=== PATIENT | male | born 1965 | race African-American/Black ===

== ENCOUNTER 2022-04-14 22:17 | Emergency (ER) | payer OTHER ==
[~2022-04-14] VITALS: Ht 188 cm; Wt 112.0 kg
[2022-04-14] MEDS ORDERED: MORPHINE SULFATE 4 MG/ML SYR/VIAL IV ONE (23:30)
[2022-04-14] MEDS ORDERED: ONDANSETRON HCL 4 MG/2 ML VIAL IV ONE (23:30)
[2022-04-14 23:43] LABS: Basophils # (auto) 0 10 ^3/uL (0-0.2); Basophils % (auto) 0.3 % (0.0-2.0); Eosinophils # (auto) 0 10 ^3/uL (0-0.8); Eosinophils % (auto) 0.2 % (0.0-7.0); Hematocrit 44.9 % (41.0-53.0); Hemoglobin 15.6 g/dL (13.5-17.5); Lymphocytes # (auto) 0.8 10 ^3/uL (0.4-5.4); Lymphocytes % (auto) 6.3 % (10.0-50.0); Mean Corpuscular Hemoglobin 31.5 pg (28.0-32.0); Mean Corpuscular Hgb Conc. 34.8 g/dL (32.0-36.0); Mean Corpuscular Volume 90.6 fL (80.0-100.0); Monocytes # (auto) 0.5 10 ^3/uL (0-1.3); Monocytes % (auto) 3.9 % (0.0-12.0); Neutrophils # (auto) 11.7 10 ^3/uL (1.6-8.6); Neutrophils % (auto) 89.3 % (37.0-80.0); Nucleated Red Blood Cells % 0.4 %; Red Blood Cells 4.95 10^6/uL (4.5-5.90); Red Cell Distribution Width 13.8 % (11.8-14.3); White Blood Cell 13.1 10^3/uL (4.4-10.8)
[2022-04-14] MEDS ORDERED: levETIRAcetam 500 MG/5ML INJ IV ONE (23:43)
[2022-04-15] LABS: INR 1.1 (0.9-1.15); Partial Thromboplastin Time 28.2 sec (24.6-33.4)
[2022-04-15 00:13] LABS: Albumin 4.1 g/dL (3.4-5.0); BUN/Creatinine Ratio 13.8; Calcium 9.2 mg/dL (8.5-10.1); Potassium 4.3 mmol/L (3.5-5.1)
[2022-04-15 00:16] LABS: Bilirubin, Total 0.3 mg/dL (0.2-1.0); Total Protein 7.7 g/dL (6.4-8.2)
[2022-04-15 00:19] VITALS: BP 128/87
== END 2022-04-15 00:30 | disposition short-term general hospital (02) ==
LOC: EDBD 22:17 → ER 22:17 → EEVIPCON 22:17 → ER 04-15 00:30
DX: S02.91XA Unspecified fracture of skull, initial encounter for closed fracture (principal); S06.5XAA Traumatic subdural hemorrhage with loss of consciousness status unknown, initial encounter; S06.0XAA Concussion with loss of consciousness status unknown, initial encounter; S12.000A Unspecified displaced fracture of first cervical vertebra, initial encounter for closed fracture; S00.83XA Contusion of other part of head, initial encounter; G95.20 Unspecified cord compression; R04.0 Epistaxis; S06.6XAA Traumatic subarachnoid hemorrhage with loss of consciousness status unknown, initial encounter; Y08.89XA Assault by other specified means, initial encounter; Y93.89 Activity, other specified; Y92.89 Other specified places as the place of occurrence of the external cause; Y99.8 Other external cause status
CPT/HCPCS: 36415; 70450; 70486; 71250; 72125; 74176; 80053; 85025; 85610; 85730; 96365; 96375; 99291; J1953; J2270; J2405; J7060